=== PATIENT | male | born 1960 | race Caucasian/White ===

== ENCOUNTER 2018-12-14 13:38 | Emergency (ER) | payer OTHER ==
[~2018-12-14] VITALS: Ht 180.3 cm; Wt 104.3 kg
[2018-12-14 13:49] VITALS: Ht 180.3 cm; Wt 104.3 kg
[2018-12-14 18:33] VITALS: BP 140/71
== END 2018-12-14 18:33 | disposition home or self-care (01) ==
LOC: ED 13:38
DX: M54.5 Low back pain (principal); G89.29 Other chronic pain; F17.210 Nicotine dependence, cigarettes, uncomplicated; M54.16 Radiculopathy, lumbar region; E11.9 Type 2 diabetes mellitus without complications; I10 Essential (primary) hypertension; E78.00 Pure hypercholesterolemia, unspecified; Z98.890 Other specified postprocedural states
CPT/HCPCS: 82962; 99406; J1100; J1885